=== PATIENT | male | born 1985 ===

== ENCOUNTER 2018-10-01 17:08 | Emergency (ER) | payer BC ==
[~2018-10-01] VITALS: Ht 177.8 cm; Wt 107.0 kg
[2018-10-01 17:11] VITALS: BP 123/87
[2018-10-01] MEDS ORDERED: cyclobenzaprine 10mg tablet PO ONE (18:10)
== END 2018-10-01 20:08 | disposition home or self-care (01) ==
LOC: ER 17:10
DX: S16.1XXA Strain of muscle, fascia and tendon at neck level, initial encounter (principal); M54.12 Radiculopathy, cervical region; Z88.6 Allergy status to analgesic agent; X58.XXXA Exposure to other specified factors, initial encounter; Y93.89 Activity, other specified; Y92.89 Other specified places as the place of occurrence of the external cause; Y99.8 Other external cause status
CPT/HCPCS: 70450; 72125; 99284